=== PATIENT | male | born 1950 | race Caucasian/White ===

== ENCOUNTER 2019-07-17 08:14 | Outpatient (CLI) | payer MEDICARE, SELFPAY ==
--- NOTE | 2019-07-17 | US_ITS ---
WS: [id number] RIGHT UPPER QUADRANT ULTRASOUND HISTORY: FATTY LIVER COMPARISON: 06/29/2016 Liver: Extremely limited evaluation of the liver. The liver size and texture is very difficult to acc urately described. There is severe hepatic steatosis. Cannot exclude mass or bile duct dilatation or enlargement. Gallbladder: Normally distended gallbladder with no stones or wall thickening. CBD: 3.7 mm Pancreas: Not well visualized. Right kidney: 10.1 cm in length. Normal echogenicity with no mass or hydronephrosis. Aorta and IVC: Not well visualized. No ascites. US/US liver [id number] IMPRESSION: 1. Nondiagnostic evaluation of the liver. Severe changes of hepatic steatosis. 2. No cholelithiasis.
== END 2019-07-17 08:15 | disposition home or self-care (01) ==
PROVIDERS: Family Provider Family Medicine; Visit Provider Family Medicine
DX: K76.0 Fatty (change of) liver, not elsewhere classified (principal)
CPT/HCPCS: 76705